=== PATIENT | male | born 1985 | race Caucasian/White ===

== ENCOUNTER 2022-08-02 13:41 | Emergency (ER) | payer BC ==
[2022-08-02] MEDS ORDERED: fentaNYL INJ 100 MCG/2 ML AMP IM STA (14:20)
--- NOTE | 2022-08-02 14:28 | ED Trauma-Multisystem ---
General Chief Complaint: Trauma-Non Activation Stated Complaint: POSSIBLE BROKEN WRISTS Nursing Triage Note: PT AMB TO RM 6 WITH C/O FALL OFF ROOF APPROX 12FT AROUND 1929 YESTERDAY. PT C/O BILAT WRIST PAIN, R KNEE PAIN, AND NECK STIFFNESS. DENIES LOC. PT MOTHER AT BEDSIDE STATES AFTER HE GOT UP OFF THE FROUND PT WAS UNAWARE OF WHY HE WAS ON THE ROOF. PT DENIES BACK PAIN. DENIES PAIN MEDS. UNK LAST TDAP. Source of Information: Patient Exam Limitations: No Limitations History of Present Illness Date Seen by Provider: Aug 02, 2022 Time Seen by Provider: 14:10 Initial Comments 37-year-old male presents to the ED after falling off a 12 foot roof last night around 7:30 PM. He states he landed headfirst. He presents with abrasions to face and neck, left shoulder, right flank, and proximal to right knee. He complains of pain in the left side of his neck specially with movement, bilateral wrist pain, worse on the right side, right shoulder pain, and right knee pain. Patient ambulated to room. He denies any past medical history, does not take any medications. Allergies and Home Medications Allergies Coded Allergies: No Known Drug Allergies (Unverified , 08/02/22) Patient Home Medication List Home Medication List Reviewed: Yes Lisinopril (Lisinopril) 10 Mg Tablet, 10 MG PO DAILY Prescribed by: Anjali Salazar on 08/02/221800 Oxycodone HCl/Acetaminophen (Percocet 5-325 mg Tablet) 1 Each Tablet, 1 TAB PO Q4H Prescribed by: Anjali Salazar on 08/02/221801 Review of Systems Review of Systems Constitutional: see HPI Physical Exam Vital Signs Vital Signs - First Documented 08/02/22 14:08 Temp 37.1 Pulse 89 Resp 12 B/P (MAP) 180/121 (140) Pulse Ox 99 O2 Delivery Room Air Height, Weight, BMI Height: '" Weight: lbs. oz. kg; BMI Method: General Appearance: WD/WN, Mild Distress Head: Other (Abrasions to right side of face and neck); No Active Bleeding, No Cormier's Sign, No Raccoon Eyes Eyes: Right Eye Bleeding; Left Eye Normal Inspection; Bilateral Eye PERRL, B ilateral Eye EOMI Ears, Nose, Throat: Hearing Grossly Normal, No Evidence of ENT Injury, No Dental Injury Neck: Full Range of Motion, Normal Inspection, Supple, Tender Lateral (left side); No Tender Midline Cardiovascular: Regular Rate, Rhythm, No Edema, No Gallop, No JVD, No Murmur Respiratory: Lungs Clear, Normal Breath Sounds, No Accessory Muscle Use, No Respiratory Distress Rectal: Deferred (Patient ambulated to room) Back: Normal Inspection, Other (Abrasion right flank) Extremity: Normal Capillary Refill, Normal Inspection Neurologic/Psychiatric: Alert, No Motor/Sensory Deficits, Normal Mood/Affect Skin: Normal Color, Warm/Dry Procedures/Interventions Procedure: right wrist reduction and splint application Patient Education: Explained Benefits, Explained Risks, Pt. Ack. Understanding Agreement on procedure with pt: Yes Breath Sounds per Auscultation: Clear Heart Sounds per Auscultation: Regular Airway Exam: Mouth opens >2 fingers, Neck Full Range of Motion, Visulation of Uvula Sedation Adminstration Time: 15:47 Total Time spent in CS 23 minutes Patient required a total of 200 mg of propofol and 200 mg of ketamine for conscious sedation. Right wrist was reduced and placed in splint. Postreduction x-ray obtained. Improvement noted on x-ray. Re-examination Time: 16:20 Re-examination Patient back to baseline. No issues with returning to baseline. Splinting and Joint Reduction #1: Location: right wrist Pre-Proc Neuro Vasc Exam: normal Post-Proc Neuro Vasc Exam: normal Reduction Attempts: 1 Pre-Procedure NV Exam: Yes post joint reduction film: joint reduced German wrap: Yes Arm Sling: Large Hand-Made Type: orthoglass (Sugar-tong) Splinting and Joint Reduction #2: Location: left wrist Pre-Proc Neuro Vasc Exam: normal Post-Proc Neuro Vasc Exam: normal Pre-Procedure NV Exam: Yes German wrap: Yes Arm Sling: Large Hand-Made Type: orthoglass (Sugar-tong) Progress/Results/Core Measures Results/Orders My Orders Orders - ANJALI SALAZAR APRN Shoulder, Right, 3 Views (08/02/22 14:20) Wrist,Bilat,3 Views Or More (08/02/22 14:20) Knee, Right, 3 Views (08/02/22 14:20) Fentanyl Inj (Sublimaze Injection) (08/02/22 14:30) Ed Iv/Invasive Line Start (08/02/22 14:34) Ct Head/Face/Cervical Wo (08/02/22 14:43) Morphine Injection (Morphine Injection (08/02/22 15:08) Propofol Injection (Diprivan Injection) (08/02/22 15:30) Ketamine Injection (Ketalar Injection) (08/02/22 15:53) Wrist, Right, 2 Views (08/02/22 16:02) Hydromorphone Injection (Dilaudid Inject (08/02/22 17:00) Lisinopril Tablet (Zestril Tablet) (08/02/22 17:30) Rx-Oxycodone/Apap 5-325 Mg (Rx-Percocet (08/02/22 18:15) Medications Given in ED Vital Signs/I&O 08/02/22 08/02/22 08/02/22 08/02/22 14:08 15:43 15:43 15:43 Temp 37.1 Pulse 89 86 86 Resp 12 6 B/P (MAP) 180/121 (140) 184/122 (142) Pulse Ox 99 99 O2 Delivery Room Air OxyMask OxyMask O2 Flow Rate 15.00 15.00 08/02/22 08/02/22 08/02/22 08/02/22 15:50 15:55 16:00 16:05 Pulse 96 93 110 121 Resp 6 17 17 10 B/P (MAP) 168/133 (145) 187/116 (139) 207/121 (149) 183/123 (143) Pulse Ox 99 99 94 97 O2 Delivery OxyMask OxyMask OxyMask OxyMask O2 Flow Rate 15.00 15.00 15.00 15.00 08/02/22 08/02/22 08/02/22 08/02/22 16:10 16:15 16:20 16:25 Pulse 104 98 94 91 Resp 13 8 8 17 B/P (MAP) 181/133 (149) 175/128 (144) 198/128 (151) 195/134 (154) Pulse Ox 98 99 100 100 O2 Delivery OxyMask OxyMask OxyMask OxyMask O2 Flow Rate 15.00 15.00 15.00 15.00 08/02/22 08/02/22 16:40 18:00 Pulse 88 96 Resp 20 14 B/P (MAP) 190/131 (150) 194/119 Pulse Ox 100 98 O2 Delivery OxyMask Room Air O2 Flow Rate 15.00 Blood Pressure Mean: 140 Progress Progress Note : Time: 14:31 Progress Note Patient seen and evaluated, resting in bed, mild distress. Patient was not activated as a trauma. Based on exam and symptoms, work-up initiated including CT head and neck, right shoulder x-ray, bilateral wrist x-ray, right knee x-ray. Fentanyl ordered for pain. [address] head, face, spine shows no acute intracranial hemorrhage or fracture. Knee x-ray shows no acute osseous abnormality. Wrists x-rays show acute displaced transverse fracture of the right radial metaphysis and oblique displaced fracture of the left radial metaphysis with intra- articular extension, and acute displaced bilateral ulnar styloid fractures. Will prepare for conscious sedation to reduce right wrist and splint bilateral wrists. See procedure note. 1718 patient's blood pressure has remained high during ER stay. This is possibly related to pain, but will try to treat her blood pressure. First-time dose of lisinopril given now. Will discharge with prescription for lisinopril, and have patient follow-up with primary care doctor. 1752 blood pressure has remained elevated. Patient has no headache, dizziness, blurry vision. Will discharge at this time with prescription for lisinopril and Percocet. Patient instructed to follow-up primary care doctor and orthopedics. Discharge instructions and return precautions provided. Diagnostic Imaging Diagonstic Imaging: CT Plain Films/CT/US/NM/MRI: head Comments [facility], [place] NAME: ZARA BARRETT [facility] REC#: [id number] PT STATUS: REG ER : 1985 PHYSICIAN: ANJALI SALAZAR APRN ADMIT DATE: 08/02/22/ER Signed Date of Exam:08/02/22 CT HEAD/FACE/CERVICAL WO PROCEDURE: CT head, face, and cervical spine without contrast. TECHNIQUE: Multiple contiguous axial images were obtained through the head, neck, and facial bones without the use of intravenous contrast. Sagittal and coronal reformations through the cervical spine and facial bones were also performed. Auto Exposure Controls were utilized during the CT exam to meet ALARA standards for radiation dose reduction. INDICATION: Trauma, headache, neck pain. COMPARISON: None FINDINGS: No acute intracranial hemorrhage. The thomson-white matter differentiation is preserved. The ventricles and cortical sulci are normal. No midline shift or mass effect. The midline craniocervical junction is normal. Sella is normal. No skull fracture. The globes and orbits are normal. Paranasal sinuses and mastoids are clear. Age indeterminate mildly displaced fracture of the nasal bone. The nasal septum is deviated to the right. The maxilla, zygomatic arch, pterygoid plates are normal. The mandible is normal. The orbits are normal. The mastoids are clear. Straightening of the cervical lordosis. The disc spaces are maintained. No high-density fluid within the spinal canal. No high-grade spinal canal or neural foraminal stenosis. No acute fracture or dislocation of the cervical spine. IMPRESSION: No acute intracranial hemorrhage. No large vascular territory nicole-white loss. No intracranial mass, midline shift, or hydrocephalus. No acute facial fracture. No acute fracture or dislocation of the cervical spine. Dictated by: Dictated on workstation # [id number] Dict: 08/02/22 1454 Trans: 08/02/22 1500 [facility] [place] [id number] Interpreted by: ZUHAIR CRUZ DO Electronically signed by: ZUHAIR CRUZ DO 08/02/22 1500 Diagonstic Imaging: Xray Plain Films/CT/US/NM/MRI: knee Comments [facility], [place] NAME: CHARLETTE BARRETTBENTON Hinton [facility] REC#: [id number] PT STATUS: REG ER : 1985 PHYSICIAN: ANJALI SALAZAR APRN ADMIT DATE: 08/02/22/ER Signed Date of Exam:08/02/22 KNEE, RIGHT, 3 VIEWS Knee, right, 3 views INDICATION: Right knee pain. COMPARISON: None available. TECHNIQUE: 3 views of right knee. FINDINGS: Alignment is normal. There is no acute fracture. No knee joint effusion. No prepatellar soft tissue swelling. IMPRESSION: No acute osseous abnormality. Dictated by: Dictated on workstation # [id number] Dict: 08/02/22 1508 Trans: 08/02/22 1514 [facility] [id number] Interpreted by: CECILIA GARCIA MD Electronically signed by: CECILIA GARCIA MD 08/02/224 Diagonstic Imaging: Xray Plain Films/CT/US/NM/MRI: other (Bilateral wrists) Comments [facility], [place] NAME: ZARA BARRETT [facility] REC#: [id number] PT STATUS: REG ER : 1985 PHYSICIAN: ANJALI SALAZAR APRN ADMIT DATE: 08/02/22/ER Signed Date of Exam:08/02/22 WRIST,BILAT,3 VIEWS OR MORE EXAMINATION: Right wrist radiograph TECHNIQUE: AP, oblique, lateral views of the bilateral wrist obtained HISTORY: wrist pain COMPARISON: None available. FINDINGS: Acute nondisplaced transverse fracture of the right radial metaphysis. Acute displaced fracture of the ulnar styloid. Acute oblique fracture through the left radial metaphysis with intra-articular extension. Acute displaced fracture of the left ulnar styloid. No unexpected radiopaque foreign bodies. IMPRESSION: Acute displaced transverse fracture of the right radial metaphysis and oblique displaced fracture of the left radial metaphysis with intra-articular extension. Acute displaced bilateral ulnar styloid fractures. Dictated by: Dictated on workstation # [id number] Dict: 08/02/22 1510 Trans: 08/02/22 1513 [facility] [place] [id number] Interpreted by: ZUHAIR CRUZ DO Electronically signed by: ZUHAIR CRUZ DO 08/02/22 1513 Diagonstic Imaging: Xray Plain Films/CT/US/NM/MRI: other (Right wrist) Comments [facility], [place] NAME: ZARA BARRETT Mary Jane [facility] REC#: [id number] PT STATUS: REG ER : 1985 PHYSICIAN: ANJALI SALAZAR APRN ADMIT DATE: 08/02/22/ER Signed Date of Exam:08/02/22 WRIST, RIGHT, 2 VIEWS EXAMINATION: Right wrist radiograph TECHNIQUE: AP and lateral views of the right wrist obtained. HISTORY: post reduction COMPARISON: Right wrist radiograph on the same day FINDINGS: There is coronary degradation due to overlying cast material. Similar appearance of the acute displaced right radial metaphyseal fracture and the displaced right ulnar styloid fracture. IMPRESSION: Similar appearance of the acute displaced right radial and ulnar fractures. Dictated by: Dictated on workstation # [id number] Dict: 08/02/22 1630 Trans: 08/02/22 1631 [facility] [place] [id number] Interpreted by: ZUHAIR CRUZ DO Electronically signed by: ZUHAIR CRUZ DO 08/02/22 1631 Departure Impression Primary Impression: Fall from roof Qualified Codes: W13.2XXA - Fall from, out of or through roof, initial encounter Additional Impression: Radius and ulna distal fracture Qualified Codes: S52.509A - Unspecified fracture of the lower end of unspecified radius, initial encounter for closed fracture; S52.609A - Unspecified fracture of lower end of unspecified ulna, initial encounter for closed fracture Disposition: HOME, SELF-CARE Condition: Stable Departure-Patient Inst. Decision time for Depature: 17:52 Referrals: Mary Jane MELTON DO (PCP) Primary Care Physician ZARA NIEVES MD Patient Instructions: High Blood Pressure ED, Wrist Fracture (DC) Add. Discharge Instructions: Take lisinopril 1 tablet daily. Follow-up with primary care provider regarding elevated blood pressure. Take Percocet as needed for pain. This can cause constipation. You may take Colace [id number] to help with constipation. You may also take ibuprofen 800 mg every 8 hours with food as needed for pain. Call orthopedics in the morning to schedule a follow-up appointment. Do not remove your splint. You may loosen the German bandage if your fingers feel numb. Do not get your splint wet, cover with plastic wrap when showering. Return for uncontrolled pain, numbness or tingling, or change of colors in your fingers, severe headache, blurred vision, dizziness, or any other new, concerning, or worsening symptoms. All discharge instructions reviewed with patient and/or family. Voiced understanding. Scripts Oxycodone HCl/Acetaminophen (Percocet 5-325 mg Tablet) 1 Each Tablet 1 TAB PO Q4H for PAIN-MODERATE MDD 6 TABS for 7 Days, #30 TAB 0 Refills Prov: MARTIN,ANJALI R DIRECTOR WORK 08/02/22 Lisinopril (Lisinopril) 10 Mg Tablet 10 MG PO DAILY for 30 Days, #30 TAB 0 Refills Prov: ANJALI SALAZAR APRN 08/02/22 Work/School Note: Work Release Form Date Seen in the Emergency Department: Aug 02, 2022 Return to Work: Aug 07, 2022 Restrictions: Need Release from Doctor Other Restrictions Listed Below: No work until released by Doctor ANJALI SALAZAR APRN Aug 02, 2022 14:28
[2022-08-02] MEDS ORDERED: fentaNYL INJ 100 MCG/2 ML AMP IVP PRN (14:30)
--- NOTE | 2022-08-02 15:02 | Diagnostic Imaging Report ---
PROCEDURE: CT head, face, and cervical spine without contrast. TECHNIQUE: Multiple contiguous axial images were obtained through the head, neck, and facial bones without the use of intravenous contrast. Sagittal and coronal reformations through the cervical spine and facial bones were also performed. Auto Exposure Controls were utilized during the CT exam to meet ALARA standards for radiation dose reduction. INDICATION: Trauma, headache, neck pain. COMPARISON: None FINDINGS: No acute intracranial hemorrhage. The thomson-white matter differentiation is preserved. The ventricles and cortical sulci are normal. No midline shift or mass effect. The midline craniocervical junction is normal. Sella is normal. No skull fracture. The globes and orbits are normal. Paranasal sinuses and mastoids are clear. Age indeterminate mildly displaced fracture of the nasal bone. The nasal septum is deviated to the right. The maxilla, zygomatic arch, pterygoid plates are normal. The mandible is normal. The orbits are normal. The mastoids are clear. Straightening of the cervical lordosis. The disc spaces are maintained. No high-density fluid within the spinal canal. No high-grade spinal canal or neural foraminal stenosis. No acute fracture or dislocation of the cervical spine. IMPRESSION: No acute intracranial hemorrhage. No large vascular territory nicole-white loss. No intracranial mass, midline shift, or hydrocephalus. No acute facial fracture. No acute fracture or dislocation of the cervical spine. Dictated by: Dictated on workstation # [id number]
[2022-08-02] MEDS ORDERED: morphine INJ 10 MG/ML 1ML (SYR OR VIAL) IVP STA (15:08)
--- NOTE | 2022-08-02 15:11 | Diagnostic Imaging Report ---
EXAMINATION: Right shoulder radiograph TECHNIQUE: AP, oblique, and lateral views of the right shoulder obtained. HISTORY: shoulder pain COMPARISON: None available. FINDINGS: No acute osseous findings. Normal joint spaces. No unexpected radiopaque foreign bodies. The included views of the chest are normal. IMPRESSION: No acute osseous findings. Dictated by: Dictated on workstation # [id number]
--- NOTE | 2022-08-02 15:11 | Diagnostic Imaging Report ---
Knee, right, 3 views INDICATION: Right knee pain. COMPARISON: None available. TECHNIQUE: 3 views of right knee. FINDINGS: Alignment is normal. There is no acute fracture. No knee joint effusion. No prepatellar soft tissue swelling. IMPRESSION: No acute osseous abnormality. Dictated by: Dictated on workstation # [id number]
--- NOTE | 2022-08-02 15:14 | Diagnostic Imaging Report ---
EXAMINATION: Right wrist radiograph TECHNIQUE: AP, oblique, lateral views of the bilateral wrist obtained HISTORY: wrist pain COMPARISON: None available. FINDINGS: Acute nondisplaced transverse fracture of the right radial metaphysis. Acute displaced fracture of the ulnar styloid. Acute oblique fracture through the left radial metaphysis with intra-articular extension. Acute displaced fracture of the left ulnar styloid. No unexpected radiopaque foreign bodies. IMPRESSION: Acute displaced transverse fracture of the right radial metaphysis and oblique displaced fracture of the left radial metaphysis with intra-articular extension. Acute displaced bilateral ulnar styloid fractures. Dictated by: Dictated on workstation # [id number]
[2022-08-02] MEDS ORDERED: proPOfol 200 MG/20 ML (DIPRIVAN) VIAL IV ONE (15:30)
[2022-08-02] MEDS ORDERED: KETAMINE HCL 100 MG/ML 5 ML VIAL ONE (15:53)
--- NOTE | 2022-08-02 16:32 | Diagnostic Imaging Report ---
EXAMINATION: Right wrist radiograph TECHNIQUE: AP and lateral views of the right wrist obtained. HISTORY: post reduction COMPARISON: Right wrist radiograph on the same day FINDINGS: There is coronary degradation due to overlying cast material. Similar appearance of the acute displaced right radial metaphyseal fracture and the displaced right ulnar styloid fracture. IMPRESSION: Similar appearance of the acute displaced right radial and ulnar fractures. Dictated by: Dictated on workstation # [id number]
[2022-08-02] MEDS ORDERED: HYDROmorphone 2 MG/ML VIAL (DILAUDID) IM ONE (17:00)
[2022-08-02] MEDS ORDERED: lisINopril 10 MG (PRINIVIL) TABLET PO ONE (17:30)
[2022-08-02 18:00] VITALS: BP 194/119
[2022-08-02] MEDS ORDERED: OXYC1TAB87 PO (18:01)
[2022-08-02] MEDS ORDERED: LISI10TA25 PO (18:01)
[2022-08-02] MEDS ORDERED: RX-OXYCODONE/APAP 5-325 MG #4 TAB PK PO PRN (18:15)
== END 2022-08-02 18:15 | disposition home or self-care (01) ==
LOC: ER 13:46
DX: S52.591A Other fractures of lower end of right radius, initial encounter for closed fracture (principal); S52.572A Other intraarticular fracture of lower end of left radius, initial encounter for closed fracture; S52.611A Displaced fracture of right ulna styloid process, initial encounter for closed fracture; S52.612A Displaced fracture of left ulna styloid process, initial encounter for closed fracture; S00.81XA Abrasion of other part of head, initial encounter; S10.91XA Abrasion of unspecified part of neck, initial encounter; S30.811A Abrasion of abdominal wall, initial encounter; Z28.310 Unvaccinated for COVID-19; W13.2XXA Fall from, out of or through roof, initial encounter
CPT/HCPCS: 24675; 25605; 29105; 70450; 70486; 72125; 73030; 73100; 73562; 93041

== ENCOUNTER → 2022-08-06 | Outpatient (CLI) | payer BC ==
[~2022-08-06] MED LIST: IBUP-2185 PO; LISI10TA25 PO; MULT9LIQ2 PO; OXYC1TAB87 PO
== END ==
LOC: ORTHO 12:35
PROVIDERS: ATTEND Orthopaedic Surgery
DX: S52.501A Unspecified fracture of the lower end of right radius, initial encounter for closed fracture (principal); S52.502A Unspecified fracture of the lower end of left radius, initial encounter for closed fracture; X58.XXXA Exposure to other specified factors, initial encounter
CPT/HCPCS: 99203

== ENCOUNTER 2022-08-07 05:28 | Outpatient (CLI) | payer BC ==
[~2022-08-07] VITALS: Ht 172.7 cm; Wt 84.6 kg
[~2022-08-07 05:28] MED LIST changes: -IBUP-2185 PO; -MULT9LIQ2 PO
[2022-08-07] MEDS ORDERED: MULT9LIQ2 PO (08:35)
[2022-08-07] MEDS ORDERED: IBUP-2185 PO (08:35)
== END 2022-08-07 09:10 | disposition home or self-care (01) ==
LOC: PREOP 05:28
PROVIDERS: ATTEND Orthopaedic Surgery
DX: Z01.818 Encounter for other preprocedural examination (principal)

== ENCOUNTER 2022-08-10 08:22 | Day surgery (SDC) | payer BC ==
[2022-08-10] VITALS (12 sets, daily range): BP systolic 98–167; BP diastolic 55–98
[~2022-08-10] VITALS: Ht 172.7 cm; Wt 84.6 kg
[~2022-08-10 08:22] MED LIST changes: +IBUP-2185 PO; +MULT9LIQ2 PO
[2022-08-10] MEDS ORDERED: ceFAZolin INJECTION 2,000 MG in NS (IVPB) 50 ML IV ONE (08:45)
[2022-08-10] MEDS ORDERED: fentaNYL INJ 100 MCG/2 ML AMP IV ONE (09:30)
[2022-08-10] MEDS: LACTATED RINGERS 1,000 ML IV PRN ×2 (09:38→11:20)
[2022-08-10] MEDS ORDERED: BUPIVACAINE 0.25% 30 ML (SENSORCAINE) VIAL ONE (09:53)
[2022-08-10] MEDS ORDERED: BUPIVACAINE 0.25% 30 ML (SENSORCAINE) VIAL INJ ONE (10:23)
--- NOTE | 2022-08-10 10:36 | Progress Note-Pre Operative ---
Pre-Operative Progress Note Date of Available H&P: Aug 06, 2022 Date H&P Reviewed: Aug 10, 2022 Time H&P Reviewed: 10:20 History & Physical: H&P Reviewed, Patient Examed, No changes noted Pre-Operative Diagnosis: Bilateral Distal Radius Fractures ZARA NIEVES MD Aug 10, 2022 10:36
[2022-08-10] MEDS ORDERED: proPOfol 200 MG/20 ML (DIPRIVAN) VIAL IV ONE (10:52)
[2022-08-10] MEDS ORDERED: ONDANSETRON 4 MG/2 ML (SDV) Z0FRAN ONE (10:52)
[2022-08-10] MEDS ORDERED: LIDOCAINE PF 2% 5 ML (XYLOCAINE) VIAL ONE (10:52)
[2022-08-10] MEDS ORDERED: MIDAZOLAM 2 MG/2 ML (VERSED) VIAL ONE (10:53)
[2022-08-10] MEDS ORDERED: fentaNYL INJ 100 MCG/2 ML AMP ONE (10:53)
[2022-08-10] MEDS ORDERED: HYDROmorphone 2 MG/ML VIAL (DILAUDID) ONE (12:08)
--- NOTE | 2022-08-10 12:55 | Operative Report - Ortho ---
Operative Report Surgeon (s)/Vending Service Technician (s) Surgeon ZARA NIEVES MD Vending Service Technician n/a Pre-Operative Diagnosis Bilateral Distal Radius Fractures Post-Operative Diagnosis same Operative Report Date of Procedure: Aug 10, 2022 Name of Procedure Performed: Open Reduction and Internal Fixation of Right Intraarticular Distal Radius Fracture & Closed Treatment with Casting of Left Distal Radius Fracture Description & Findings After obtaining informed consent, the patient was taken to the operating room. General anesthesia was induced. Surgical timeout was taken. The rightt upper extremity was prepped and draped in the usual sterile fashion. Incision was made over the volar side of the wrist. Radial artery was identified and protected. Fascia was divided, retractors were placed, and the pronator was reflected. Fracture site was exposed. Fracture site was mobilized. Reduction maneuver was performed using traction, wrist flexion, and ulnar deviation. A [employer] distal radius plate was selected and position against the bone using C- arm. A nonlocking screw was placed in the slot of the plate. A nonlocking screw was then placed in the most distal row of the plate. Plate position and reduction were confirmed in the AP and lateral planes. An ulnar sided locking screw was placed in the distal row followed by the ulnar sided locking screw in the 2nd row. C-arm was once again utilized and noted to have good position of hardware with maintained reduction of fracture. 2 additional locking screws were placed in the distal segment. 2 locking screws were then placed in the radial styloid position. 2 locking screws were placed in the diaphyseal portion of the plate. Images were obtained in the AP, and lateral and demonstrated adequate reduction of the fracture with reduction of the intrarticular segment, and appropriate position of the hardware. Final images were transferred to PACS. Wound was irrigated with normal saline. Subcutaneous layer was closed with 3-0 vicryl. Skin was closed with 4-0 nylon. Wound was injected locally with marcaine. Arm was dressed with steri-strips, xeroform, 4x4s, webril, volar splint, and SUSHILA wrap. Attention was turned to the left distal radius fracture. C-arm was used to v isualize the fracture and demonstrated a nondisplaced intraarticular distal radius fracture. Forearm was padded with stockinette and webril. A short arm fiberglass cast was applied with the wrist in neutral position. C-arm images were once again obtained in the cast and demonstrated maintained reduction. Theses images were transferred to PACS. Patient tolerated the procedure well and was stable to the recovery room. Anesthesia Type General Estimated Blood Loss minimal Specimen(s) collected/removed None ZARA NIEVES MD Aug 10, 2022 12:55
--- NOTE | 2022-08-10 13:27 | Anesthesia-General Post-Op ---
General Patient Condition Mental Status/LOC: Same as Preop Cardiovascular: Satisfactory Nausea/Vomiting: Absent Respiratory: Satisfactory Pain: Controlled Complications: Absent Post Op Complications Complications None Follow Up Care/Instructions Patient Instructions None needed. Anesthesia/Patient Condition Patient Condition Patient is doing well, no complaints, stable vital signs, no apparent adverse anesthesia problems. No complications reported per nursing. REGINALD BARRAZA CRNA Aug 10, 2022 13:27
[2022-08-10] MEDS ORDERED: diphenhydrAMINE 50 MG/ML INJ (BENADRYL) IJ ONE (13:30)
[2022-08-10] MEDS ORDERED: morphine INJ 10 MG/ML 1ML (SYR OR VIAL) IVP ONE (13:30)
[2022-08-10] MEDS ORDERED: HYDROmorphone 2 MG/ML VIAL (DILAUDID) IV ONE (13:30)
[2022-08-10] MEDS ORDERED: MEPERIDINE (DEMEROL) INJ 50 MG/ML IVP ONE (13:30)
[2022-08-10] MEDS ORDERED: ONDANSETRON 4 MG/2 ML (SDV) Z0FRAN IVP PRN (13:30)
[2022-08-10] MEDS ORDERED: oxyCODONE/APAP 10/325MG (PERCOCET 10) TABLET PO ONE ×2 (14:08→14:15)
[2022-08-10] MEDS ORDERED: morphine INJ 10 MG/ML 1ML (SYR OR VIAL) ONE (14:20)
[2022-08-10] MEDS ORDERED: diphenhydrAMINE 50 MG/ML INJ (BENADRYL) ONE (14:26)
[2022-08-10] MEDS ORDERED: MEPERIDINE (DEMEROL) INJ 50 MG/ML ONE (14:36)
--- NOTE | 2022-08-10 15:09 | Diagnostic Imaging Report ---
INDICATION: Wrist fractures, ORIF of right distal radius and closed reduction of left distal radius. TECHNIQUE: Four views were obtained with 55.9 seconds of fluoroscopy time used. FINDINGS: On the right side, there is a plate and screws in the distal radius with anatomic alignment of the distal radial intra-articular fracture. Ulnar styloid avulsion is noted. On the left side, an overlying cast is in place with a well aligned distal radial fracture and ulnar styloid avulsion. IMPRESSION: Intraoperative fluoroscopy was used for closed reduction of the left wrist fracture and ORIF of the right distal radial fracture. Dictated by: Dictated on workstation # [id number]
== END 2022-08-10 15:15 | disposition home or self-care (01) ==
LOC: SDC 08:22
PROVIDERS: ATTEND Orthopaedic Surgery
DX: S52.571A Other intraarticular fracture of lower end of right radius, initial encounter for closed fracture (principal); S52.572A Other intraarticular fracture of lower end of left radius, initial encounter for closed fracture; F17.210 Nicotine dependence, cigarettes, uncomplicated; X58.XXXA Exposure to other specified factors, initial encounter; Z28.310 Unvaccinated for COVID-19
CPT/HCPCS: 76000; 87081

== ENCOUNTER → 2022-08-25 | Outpatient (CLI) | payer BC ==
--- NOTE | 2022-08-25 16:35 | Diagnostic Imaging Report ---
INDICATION: Followup left wrist fracture. TIME OF EXAM: 12:30 PM. COMPARISON: Correlation is made with the prior radiographs from 08/02/2022. FINDINGS: The comminuted intra-articular fracture of the distal radius is again noted. There is also a fracture through the ulnar styloid. Overall alignment appears stable. A cast has been placed which does obscure some bone detail. The carpus and visualized metacarpals are intact. IMPRESSION: Distal radius and ulnar fractures, similar in alignment to the exam from 09/02/2022 which is near-anatomic. Dictated by: Dictated on workstation # [id number]
== END ==
LOC: ORTHO 11:51
PROVIDERS: ATTEND Orthopaedic Surgery
DX: Z47.89 Encounter for other orthopedic aftercare (principal); S52.602D Unspecified fracture of lower end of left ulna, subsequent encounter for closed fracture with routine healing; X58.XXXD Exposure to other specified factors, subsequent encounter
CPT/HCPCS: 73110

== ENCOUNTER → 2022-09-08 | Outpatient (CLI) | payer BC ==
--- NOTE | 2022-09-08 19:49 | Diagnostic Imaging Report ---
INDICATION: Follow-up fracture COMPARED: 08/25/2022 Bilateral 3 view wrist performed. FINDINGS: Left wrist: Ulnar styloid avulsion unchanged. There is endosteal and periosteal new bone formation associated with healing comminuted intra-articular distal radial fracture involving its styloid as well as mid articular surface. No articular offset. It is healing and in anatomic alignment. Post surgical changes to the distal right radius with plate and screws has been performed in the interim with anatomic alignment and new bone formation associated with partial healing. Its ulnar styloid avulsion is in stable alignment. IMPRESSION: Healing distal radial fractures with interval postsurgical changes on the right resulting in essential anatomic alignment achieved. There has been no adverse development. Dictated by: Dictated on workstation # [id number]
== END ==
LOC: ORTHO 13:15
PROVIDERS: ATTEND Orthopaedic Surgery
DX: S52.501D Unspecified fracture of the lower end of right radius, subsequent encounter for closed fracture with routine healing (principal); X58.XXXD Exposure to other specified factors, subsequent encounter

== ENCOUNTER → 2022-10-08 | Outpatient (CLI) | payer BC ==
--- NOTE | 2022-10-08 13:37 | Diagnostic Imaging Report ---
EXAMINATION: Right and left wrist radiographs, 3 views each. COMPARISON: Bilateral wrist radiographs September 08, 2022. HISTORY: 37-year-old male, bilateral wrist pain. FINDINGS: There is a displaced fracture through the base of the left ulnar styloid which is unchanged. There is scoliosis at the level of the distal radial metaphysis extending to the joint space in the left relating to distal radial fracture. There is no current offset of the articulating surface. The fracture lines of the left distal radius are not particularly well seen. There is a redemonstrated and unchanged displaced fracture of the right ulnar styloid. There is sideplate and screw fixation hardware at the level of the right distal radius. The hardware is intact. There is mild offset of the articulating surface of the right distal radius measuring less than 1 mm which is unchanged. The distal radial fracture lines are less apparent relating to partial interval bony bridging. IMPRESSION: 1. Interval partial healing response of fractures of the left and right distal radius. There is sideplate and screw fixation hardware on the right which is intact. 2. Redemonstrated and unchanged displaced fractures through the bases of the right and left ulnar styloids. Dictated by: Dictated on workstation # [id number]
== END ==
LOC: ORTHO 08:53
PROVIDERS: ATTEND Orthopaedic Surgery
DX: S52.502D Unspecified fracture of the lower end of left radius, subsequent encounter for closed fracture with routine healing (principal); S52.611D Displaced fracture of right ulna styloid process, subsequent encounter for closed fracture with routine healing; S52.612D Displaced fracture of left ulna styloid process, subsequent encounter for closed fracture with routine healing; X58.XXXD Exposure to other specified factors, subsequent encounter

== ENCOUNTER → 2022-11-11 | Outpatient (CLI) | payer BC ==
--- NOTE | 2022-11-11 10:18 | Diagnostic Imaging Report ---
HISTORY: Bilateral wrist pain, fractures TECHNIQUE: 3 views of the bilateral wrists COMPARISON: 10/08/2022 FINDINGS: There is internal fixation of the distal right radius fracture with a volar plate and multiple screws. There are healing changes present with bone bridging. There is a mildly displaced fracture of the ulnar styloid process which appears stable. No new fractures are seen. There is a healing intra-articular fracture of the distal left radius. Alignment is normal. There is unchanged mildly displaced fracture of the ulnar styloid process. IMPRESSION: 1. Internal fixation of the distal right radius fracture with no hardware complication seen. 2. Healing distal left radius fracture in stable alignment. Unchanged bilateral mildly displaced ulnar styloid process fractures. Dictated by: Dictated on workstation # [id number]
== END ==
LOC: ORTHO 09:34
PROVIDERS: ATTEND Orthopaedic Surgery
DX: S52.501D Unspecified fracture of the lower end of right radius, subsequent encounter for closed fracture with routine healing (principal); S52.502D Unspecified fracture of the lower end of left radius, subsequent encounter for closed fracture with routine healing; X58.XXXD Exposure to other specified factors, subsequent encounter